=== PATIENT | female | born 2000 | race African-American/Black ===

== ENCOUNTER 2020-06-19 14:55 | Emergency (ER) | payer MEDICAID, OTHER ==
[~2020-06-19] VITALS: Ht 175.3 cm; Wt 74.8 kg
[~2020-06-19 14:55] MED LIST: FERR-20 PO; PRENCAP61 PO
[2020-06-19 15:05] VITALS: BP 124/70
== END 2020-06-19 17:15 | disposition home or self-care (01) ==
LOC: ER 14:55
DX: N76.0 Acute vaginitis (principal); B96.89 Other specified bacterial agents as the cause of diseases classified elsewhere; Z32.02 Encounter for pregnancy test, result negative
CPT/HCPCS: 81002; 81025

== ENCOUNTER 2020-08-04 10:12 | Emergency (ER) | payer OTHER ==
[~2020-08-04] VITALS: Ht 175.3 cm; Wt 81.6 kg
[2020-08-04 10:47] VITALS: BP 125/74
[2020-08-04] MEDS ORDERED: cefTRIAXone SODIUM 250 MG VL IM ONE (11:00)
[2020-08-04] MEDS ORDERED: AZITHROMYCIN 250 MG TAB PO ONE (11:00)
== END 2020-08-04 11:16 | disposition home or self-care (01) ==
LOC: ER 10:12
DX: N76.0 Acute vaginitis (principal); Z20.2 Contact with and (suspected) exposure to infections with a predominantly sexual mode of transmission; Z79.899 Other long term (current) drug therapy
CPT/HCPCS: 81002; 81025; 96372; 99283; J0696